=== PATIENT | male | born 1955 | race Caucasian/White ===

== ENCOUNTER 2020-06-06 12:40 | Outpatient (REF) | payer MEDICARE, SELFPAY ==
[2020-06-06 21:34] LABS: BUN 32 mg/dL (7-18); CREATININE 0.93 mg/dL (0.70-1.30); Calcium 9.4 mg/dL (8.5-10.1); Calculated LDL 83 mg/dL (<100); Chloride 104 mmol/L (98-107); Cholesterol 165 mg/dL (<200); Glucose 111 mg/dL (74-106); HDL Cholesterol 75 mg/dL (40-60); Potassium 5.2 mmol/L (3.5-5.1); Sodium 138 mmol/L (136-145); Triglyceride 38 mg/dL (<150)
== END 2020-06-06 13:00 ==
LOC: NCHCN 12:40
PROVIDERS: PCP Internal Medicine; Visit Provider Internal Medicine
DX: I10 Essential (primary) hypertension (principal); R63.4 Abnormal weight loss; E78.5 Hyperlipidemia, unspecified
CPT/HCPCS: 80048; 80061

== ENCOUNTER 2020-06-30 10:04 | Outpatient (REF) | payer MEDICARE, OTHER, SELFPAY ==
[2020-06-30 21:00] LABS: Potassium 4.1 mmol/L (3.5-5.1)
[2020-06-30 21:15] LABS: Hemoglobin A1C 5.9 % (3.8-5.6)
== END 2020-06-30 10:24 ==
LOC: NCHCN 10:04
PROVIDERS: PCP Internal Medicine; Visit Provider Internal Medicine
DX: I10 Essential (primary) hypertension (principal); R73.9 Hyperglycemia, unspecified; E87.5 Hyperkalemia
CPT/HCPCS: 83036; 84132

== ENCOUNTER 2023-01-21 18:04 | Outpatient (REF) | payer OTHER, SELFPAY ==
[2023-01-21 15:08] LABS: HCT 44.1 % (40.0-50.0); HGB 14.3 g/dL (13.5-17.5); MCH 28.1 pg (27.0-33.0); MCHC 32.4 % (32.0-36.0); MCV 87 fL (80-95); MPV 11.3 fL (8.0-11.0); Platelet Count 190 10^3/uL (130-400); RBC 5.08 10^6/uL (4.36-5.78); RDW 13.8 % (11.8-14.1); RDW-SD 44.4 fL
[2023-01-21 15:43] LABS: ALT 26 U/L (16-63); AST 25 U/L (15-37); Albumin 3.9 g/dL (3.4-5.0); BUN 19 mg/dL (7-18); Bilirubin, Total 1.1 mg/dL (0.2-1.0); CREATININE 0.8 mg/dL (0.70-1.30); Calcium 9.5 mg/dL (8.5-10.1); Chloride 107 mmol/L (98-107); Glucose 109 mg/dL (74-106); Sodium 143 mmol/L (136-145); Total Protein 7.5 g/dL (6.4-8.2)
[2023-01-21 16:00] LABS: Alkaline Phosphatase 150 U/L (46-116); Anion Gap 9.3 mmol/L (3-11); CO2 26.7 mmol/L (21.0-32.0)
== END 2023-01-21 18:05 | disposition home or self-care (01) ==
LOC: NCHCN 18:04
PROVIDERS: PCP Internal Medicine; Visit Provider Internal Medicine
DX: I10 Essential (primary) hypertension (principal); R73.03 Prediabetes
CPT/HCPCS: 80053; 85027

== ENCOUNTER 2024-08-24 16:10 | Outpatient (REF) | payer MEDICARE, SELFPAY ==
[2024-08-24 21:48] LABS: ALT 24 U/L (16-63); AST 20 U/L (15-37); Albumin 3.7 g/dL (3.4-5.0); Alkaline Phosphatase 149 U/L (46-116); Anion Gap 7.1 mmol/L (3-11); BUN 27 mg/dL (7-18); Bilirubin, Total 0.98 mg/dL (0.2-1.0); CO2 26.9 mmol/L (21.0-32.0); CREATININE 0.9 mg/dL (0.70-1.30); Calcium 9.3 mg/dL (8.5-10.1); Calculated LDL 71 mg/dL (<100); Chloride 109 mmol/L (98-107); Cholesterol 153 mg/dL (<200); Estimated GFR 91.31 (mL/min/1.73m2); Glucose 104 mg/dL (74-106); HDL Cholesterol 76 mg/dL (40-60); Sodium 143 mmol/L (136-145); Total Protein 7.5 g/dL (6.4-8.2); Triglyceride 33 mg/dL (<150)
== END 2024-08-24 16:11 | disposition home or self-care (01) ==
LOC: NCHCN 16:10
PROVIDERS: PCP Internal Medicine; Visit Provider Internal Medicine
DX: I10 Essential (primary) hypertension (principal)
CPT/HCPCS: 80053; 80061

== ENCOUNTER 2025-07-10 13:42 | Outpatient (REF) | payer MEDICARE, SELFPAY ==
[2025-07-10 17:35] LABS: Anion Gap 8.4 mmol/L (3-11); BUN 23 mg/dL (7-18); CO2 26.6 mmol/L (21.0-32.0); Calcium 9.2 mg/dL (8.5-10.1); Chloride 107 mmol/L (98-107); Estimated GFR 90.74 (mL/min/1.73m2); Glucose 104 mg/dL (74-106); Potassium 4.1 mmol/L (3.5-5.1); Sodium 142 mmol/L (136-145)
== END 2025-07-10 13:43 | disposition home or self-care (01) ==
LOC: NCHCN 13:42
PROVIDERS: PCP Internal Medicine; Visit Provider Internal Medicine
DX: I10 Essential (primary) hypertension (principal)
CPT/HCPCS: 80048